=== PATIENT | female | born 1980 | race Caucasian/White ===

== ENCOUNTER 2017-03-25 16:39 | Emergency (ER) | payer BC, OTHER ==
[2017-03-25 16:59] VITALS: BMI 35.1
--- NOTE | 2017-03-25 17:12 | PDOC ---
History of Present Illness - General Chief Complaint: Edema Stated Complaint: SWELLING OF LEGS Time Seen by Provider: 03/25/17 17:00 History Source: Patient - History of Present Illness Initial Comments: 03/25/17 17:06 36F with DM2 and recent delivery 1 week ago by on 03/18/2017 in [facility] by Dr. Gutierrez, presents to the ED for bilateral leg swelling and pulsating, burning sensation in the legs and lower abdomen ever since she got discharged from maternity.Also reports chills at night. Patient is due for staple removal in 2 days. She called her PCp to tell her to go to the ED. 03/25/17 19:50 03/25/17 19:56 Past History - Past Medical History Allergies/Adverse Reactions: Allergies Allergy/AdvReac Type Severity Reaction Status Date / Time No Known Allergies Allergy Verified 03/25/17 16:56 Home Medications: Ambulatory Orders Cephalexin [Keflex] 500 mg PO BID #14 capsule 03/25/17 Diabetes: Yes - Psycho/Social/Smoking Cessation Hx Anxiety: No Suicidal Ideation: No Smoking History: Never smoked Have you smoked in the past 12 months: No Information on smoking cessation initiated: No Hx Alcohol Use: No Drug/Substance Use Hx: No Substance Use Type: None Review of Systems - Review of Systems Is the patient limited Yakut proficient: Yes Constitutional: Yes: Chills. No: Diaphoresis, Fever HEENTM: No: Symptoms Reported Respiratory: No: Symptoms reported Cardiac (ROS): No: Symptoms Reported ABD/GI: Yes: See HPI, Other (lower abdominal pain/burning at site of .) : No: Symptoms Reported Integumentary: Yes: See HPI *Physical Exam - Vital Signs Last Vital Signs Temp Pulse Resp BP Pulse Ox 98.4 F 50 L 18 126/55 100 03/25/17 16:40 03/25/17 16:40 03/25/17 16:40 03/25/17 16:40 03/25/17 16:40 - Physical Exam General Appearance: Yes: Nourished, Appropriately Dressed. No: Apparent Distress HEENT: positive: EOMI, MEGAN Neck: positive: Trachea midline. negative: Tender Respiratory/Chest: positive: Lungs Clear, Normal Breath Sounds. negative: Chest Tender, Respiratory Distress Cardiovascular: positive: Regular Rhythm, Regular Rate, S1, S2, Bradycardia Vascular Pulses: Dorsalis-Pedis (R): 2+, Doralis-Pedis (L): 2+ Gastrointestinal/Abdominal: positive: Tenderness (generalized vague lower abd ) Extremity: positive: Normal Capillary Refill, Normal Inspection, Calf Tenderness (burning sensation). negative: Cyanosis, Pedal Edema Neurologic: positive: front office associate II-XII NML intact, Fully Oriented, Alert, Normal Mood/ Affect ED Treatment Course - LABORATORY CBC & Chemistry Diagram: 03/25/17 18:30 03/25/17 18:30 Medical Decision Making - Medical Decision Making 03/25/17 19:50 36F with DM2 and s/p and delivery 1 week ago presents with swelling burning and pulsating sensation in the legs and lower abdomen since she was discharged from [facility]. PAtient is afebrile, no edema of cyanosis noted in the legs. B/L venous Duplex negative for DVT. Talked to her OBGYN Dr Gutierrez who recommended she comes to the clinic tomorrow for evaluation of the wound. UA showing blood, wbc's, leuko esterase Patient given keflex and prescription outpatient. ok to D/C 03/25/17 19:57 03/25/17 20:09 *DC/Admit/Observation/Transfer Diagnosis at time of Disposition: Urinary tract infection - Discharge Dispostion Disposition: HOME Condition at time of disposition: Improved Admit: No - Prescriptions Prescriptions: Cephalexin [Keflex] 500 mg PO BID #14 capsule - Patient Instructions Printed Discharge Instructions: Urinary Tract Infection Additional Instructions: PLease follow up with your OBGYN Dr. Gutierrez tomorrow. Print Language: TAMAZIGHT
--- NOTE | 2017-03-25 18:48 | PDOC ---
Attending Attestation - Resident Resident Name: MarkNaveen - ED Attending Attestation I have performed the following: I have examined & evaluated the patient, The case was reviewed & discussed with the resident, I agree w/resident's findings & plan, Exceptions are as noted - HPI HPI: 03/25/17 18:46 Agree with the resident's HPI as documented in the electronic medical record. - Physicial Exam PE: 03/25/17 18:46 Agree with the resident's physical examination as documented in the electronic medical record. - Medical Decision Making 03/25/17 18:46 36-year-old female status post section 7 days ago presents the emergency department with complaints of bilateral leg pain and swelling as well as lower abdominal pain. Differential diagnosis includes but is not limited to: DVT, third spacing of fluid, postoperative pain, UTI. Plan: 1. Urine analysis and labs 2. Bilateral lower extremity duplex 3. Pain management 4. We will contact the intermediate manager to discuss the case 5. If all of the above are negative will discharge home; follow-up with OB in the morning, Tylenol for pain and return to the emergency department if symptoms persist, worsen, or new symptoms arise.
[2017-03-25 19:02] LABS: BASOPHIL 0.6 % (0-2.0); EOSINOPHIL 3.8 % (0-4.5); MCH 29.3 pg (25.7-33.7); MCHC 33.5 g/dl (32.0-36.0); MEAN CELL VOLUME 87.4 fl (80-96); MEAN PLT VOLUME 7.8 fl (7.5-11.1); NEUTROPHILS 56.1 % (42.8-82.8); PLATELET COUNT 352 K/MM3 (134-434); WHITE BLOOD COUNT 9.2 K/mm3 (4.0-10.0)
[2017-03-25 19:24] LABS: URINE APPEARANCE CLEAR; URINE BILIRUBIN NEGATIVE (NEGATIVE); URINE BLOOD 1+ (NEGATIVE); URINE COLOR STRAW; URINE GLUCOSE (UA) NEGATIVE (NEGATIVE); URINE KETONE NEGATIVE (NEGATIVE); URINE NITRITE NEGATIVE (NEGATIVE); URINE PROTEIN NEGATIVE (NEGATIVE); URINE UROBILINOGEN NEGATIVE mg/dL (0.2-1.0)
[2017-03-25 19:29] LABS: URINE LEUK ESTERASE 1+ (NEGATIVE)
[2017-03-25 19:35] LABS: URINE RBC <1 /hpf (0-3); URINE WBC 6 /hpf (3-5)
[2017-03-25 19:37] LABS: ALBUMIN 2.8 g/dl (3.4-5.0); ANION GAP 7 (8-16); CALCIUM 8.7 mg/dL (8.5-10.1); CO2 26 mmol/L (21-32); CREATININE 0.6 mg/dL (0.55-1.02); GLUCOSE,RANDOM 90 mg/dL (74-106); SGOT/AST 44 U/L (15-37); SGPT/ALT 73 U/L (12-78)
[2017-03-25 19:39] LABS: ALK PHOS 115 U/L (45-117); BILIRUBIN,TOTAL 0.3 mg/dL (0.2-1.0); TOT PROT 6.6 g/dl (6.4-8.2)
[2017-03-25] MEDS ORDERED: CEPHALEXIN MONOHYDRATE 500 MG CAPSULE (UD) PO ONE (20:01)
[2017-03-25] MEDS ORDERED: CEPHALEXIN MONOHYDRATE 250 MG CAPSULE (FP) ONE (20:21)
[2017-03-25 20:33] VITALS: BP 118/62; PULSE 56; TEMP 97.8
--- NOTE | 2017-03-26 14:45 | EKG ---
Test Reason : Blood Pressure : / mmHG Vent. Rate : 044 BPM Atrial Rate : 044 BPM P-R Int : 142 ms QRS Dur : 098 ms QT Int : 466 ms P-R-T Axes : 025 000 023 degrees QTc Int : 398 ms MARKED SINUS BRADYCARDIA MINIMAL VOLTAGE CRITERIA FOR LVH, MAY BE NORMAL VARIANT ABNORMAL ECG NO PREVIOUS ECGS AVAILABLE Confirmed by MARIN LOPEZ MD ([id number]) on 03/26/2017 2:44:52 PM Referred By: Confirmed By:MARIN LOPEZ MD
--- NOTE | 2017-03-28 09:34 | EKG ---
Test Reason : Blood Pressure : / mmHG Vent. Rate : 043 BPM Atrial Rate : 043 BPM P-R Int : 138 ms QRS Dur : 096 ms QT Int : 476 ms P-R-T Axes : 017 -04 012 degrees QTc Int : 402 ms MARKED SINUS BRADYCARDIA MODERATE VOLTAGE CRITERIA FOR LVH, MAY BE NORMAL VARIANT INCOMPLETE RBBB ABNORMAL ECG WHEN COMPARED WITH ECG OF 25-MAR-2017 18:45, NO SIGNIFICANT CHANGE WAS FOUND Confirmed by ZACK BARFIELD MD ([id number]) on 03/28/2017 9:33:51 AM Referred By: Confirmed By:ZACK BARFIELD MD
== END 2017-03-25 20:33 | disposition home or self-care (01) ==
LOC: JER 16:39
DX: N39.0 Urinary tract infection, site not specified (principal)
CPT/HCPCS: 36415; 80053; 81003; 81015; 85025; 85379; 87086; 93005; 93010; 93970-TC; 99281-25